=== PATIENT | female | born 1985 | race Two or more races ===

== ENCOUNTER 2017-04-14 12:41 | Outpatient (CLI) | payer MEDICAID ==
[~2017-04-14] VITALS: Ht 170.2 cm; Wt 132.7 kg
[2017-04-14] MEDS ORDERED: PREN-3 PO (12:48)
[2017-04-14 13:01] VITALS: BP 122/58
== END 2017-04-14 13:57 | disposition home or self-care (01) ==
LOC: LDOP 12:41
PROVIDERS: ATTEND Obstetrics & Gynecology
DX: O36.8130 Decreased fetal movements, third trimester, not applicable or unspecified (principal); Z3A.36 36 weeks gestation of pregnancy
CPT/HCPCS: 59025; 99211; G0463

== ENCOUNTER 2017-05-01 18:48 | Inpatient (IN) | payer MEDICAID ==
[~2017-05-01] VITALS: Ht 170.2 cm; Wt 134.0 kg
[~2017-05-01 18:48] MED LIST: PREN-3 PO
[2017-05-01 19:07] VITALS: BP 152/85
[2017-05-01 20:24] LABS: ASPARTATE AMINO TRANSFERASE 15 U/L (15-37); BLOOD UREA NITROGEN 11 mg/dL (7-18)
[2017-05-01] MEDS ORDERED: OXYTOCIN 30U/ 0.9% NaCL 500ML 500 ML IV ONE (21:10)
[2017-05-01] MEDS ORDERED: AMPICILLIN 2 GM in SODIUM CHLORIDE 0.9% 100 ML IVPB STA (21:10)
[2017-05-01] MEDS ORDERED: D5%-LACTATED RINGERS 1,000 ML IV SCH (21:10)
[2017-05-01] MEDS ORDERED: OXYTOCIN 30U/ 0.9% NaCL 500ML 500 ML IV PRN (21:10)
[2017-05-01] MEDS ORDERED: NEWBORN KIT ONE (21:20)
[2017-05-01] MEDS ORDERED: LIDOCAINE 1%, 20ML ONE (21:20)
[2017-05-01] MEDS ORDERED: MISOPROSTOL 200 MCG TABLET ONE (21:20)
[2017-05-01] MEDS ORDERED: OXYTOCIN 30U/ 0.9% NaCL 500ML 500 ML ONE (21:21)
[2017-05-01] MEDS ORDERED: FENTANYL PF 100 MCG/2ML IV PRN (21:30)
[2017-05-01] MEDS: LACTATED RINGERS 1,000 ML IV SCH (23:20)
[2017-05-02] MEDS ORDERED: FENTANYL PF 100 MCG/2ML ONE ×2 (00:08→11:20)
[2017-05-02] MEDS: FENTANYL PF 100 MCG/2ML IVPush PRN ×2 (00:11→11:24)
[2017-05-02] MEDS: AMPICILLIN 1 GM in SODIUM CHLORIDE 0.9% 50 ML IVPB SCH ×4 (03:30→15:51)
[2017-05-02] MEDS: LACTATED RINGERS 1,000 ML IV SCH (07:33)
[2017-05-02] MEDS ORDERED: ACETAMINOPHEN 325 MG TABLET ONE (10:38)
[2017-05-02] MEDS ORDERED: ACETAMINOPHEN 325 MG TABLET PO PRN ×2 (11:00→20:00)
[2017-05-02] MEDS ORDERED: FENTANYL/BUPIV./NS/PF 250 ML EPIDCONT ONE (12:02)
[2017-05-02] MEDS ORDERED: BUPIVACAINE/PF 0.25% ONE (12:03)
[2017-05-02] MEDS ORDERED: FENTANYL/BUPIV./NS/PF 250 ML EPIDCONT SCH (12:04)
[2017-05-02] MEDS ORDERED: LACTATED RINGERS 1,000 ML IV SCH (12:04)
[2017-05-02] MEDS ORDERED: NALOXONE 0.4 MG/ML, 1ML IVPush PRN (12:30)
[2017-05-02] MEDS ORDERED: LACTATED RINGERS 1,000 ML IVBOLUS PRN (12:30)
[2017-05-02] MEDS ORDERED: EPHEDRINE 50 MG/ML, 1ML IVPush PRN (12:30)
[2017-05-02] MEDS ORDERED: LACTATED RINGERS 1,000 ML INTUTE PRN (16:00)
[2017-05-02] MEDS ORDERED: LACTATED RINGERS 1,000 ML INTUTE SCH (16:00)
[2017-05-02] MEDS: OXYTOCIN 30U/ 0.9% NaCL 500ML 500 ML IV SCH ×4 (19:55→22:47)
[2017-05-02] MEDS ORDERED: OXYTOCIN 30U/ 0.9% NaCL 500ML 500 ML ONE (19:57)
[2017-05-02] MEDS ORDERED: MAGNESIUM HYDROXIDE 8%, 30ML UDC PO PRN (20:00)
[2017-05-02] MEDS ORDERED: METHYLERGONOVINE 0.2 MG/ML IM PRN (20:00)
[2017-05-02] MEDS ORDERED: OXYTOCIN 10 UNITS/ML, 1ML IM PRN (20:00)
[2017-05-02] MEDS ORDERED: DIPH,PERTUSS(ACELL),TET VAC/PF NC IM-VACC PRN (20:00)
[2017-05-02] MEDS ORDERED: ONDANSETRON 2MG/ML, 2ML IV PRN (20:00)
[2017-05-02] MEDS ORDERED: OXYcodone/APAP 5/325MG TABLET PO PRN (20:00)
[2017-05-02] MEDS ORDERED: OXYcodone/APAP 5/325MG TABLET ONE (21:09)
[2017-05-02] MEDS ORDERED: IBUPROFEN 600 MG TABLET ONE (21:09)
[2017-05-02] MEDS: OXYcodone/APAP 5/325MG TABLET PO PRN (21:10)
[2017-05-02 22:00] VITALS: BP 115/62
[2017-05-03] MEDS: OXYTOCIN 30U/ 0.9% NaCL 500ML 500 ML IV SCH ×8 (00:13→08:49)
[2017-05-03] MEDS: IBUPROFEN 800 MG TABLET PO PRN ×2 (01:53→12:01)
[2017-05-03] MEDS: OXYcodone/APAP 5/325MG TABLET PO PRN ×3 (01:53→12:02)
[2017-05-03 02:00] VITALS: BP 107/60
[2017-05-03] MEDS ORDERED: PRENATAL VIT/IRON/FA 1 EACH TABLET ONE (07:23)
[2017-05-03] MEDS: DOCUSATE 100 MG CAPSULE PO PRN ×2 (07:24→07:48)
[2017-05-03 07:30] VITALS: BP 133/75
[2017-05-03] MEDS ORDERED: PRENATAL VIT/IRON/FA 1 EACH TABLET PO SCH (09:00)
[2017-05-03 12:00] VITALS: BP 118/83
[2017-05-03 16:00] VITALS: BP 136/77
[2017-05-03] MEDS ORDERED: OXYC-302 PO (17:39)
[2017-05-03] MEDS ORDERED: IBUP800T PO (17:40)
== END 2017-05-03 20:00 | disposition home or self-care (01) | DRG 775 ==
LOC: LDOP 18:48 → LDIP 21:12 → 2NW 05-02 21:27
PROVIDERS: ADMIT Obstetrics & Gynecology; ATTEND Obstetrics & Gynecology
PROC: 10E0XZZ Delivery of Products of Conception, External Approach (ICD-10-PCS; principal; 2017-05-02)
PROC: 10907ZC Drainage of Amniotic Fluid, Therapeutic from Products of Conception, Via Natural or Artificial Opening (ICD-10-PCS; 2017-05-02)
PROC: 3E033VJ Introduction of Other Hormone into Peripheral Vein, Percutaneous Approach (ICD-10-PCS; 2017-05-02)
PROC: 0HQ9XZZ Repair Perineum Skin, External Approach (ICD-10-PCS; 2017-05-02)
PROC: 3E0R3CZ (ICD-10-PCS; 2017-05-02)
PROC: 00HU33Z Insertion of Infusion Device into Spinal Canal, Percutaneous Approach (ICD-10-PCS; 2017-05-02)
DX: O13.4 Gestational [pregnancy-induced] hypertension without significant proteinuria, complicating childbirth (principal); Z68.42 Body mass index [BMI] 45.0-49.9, adult; O99.824 Streptococcus B carrier state complicating childbirth; O99.214 Obesity complicating childbirth; E66.9 Obesity, unspecified; O69.1XX0 Labor and delivery complicated by cord around neck, with compression, not applicable or unspecified; Z3A.38 38 weeks gestation of pregnancy; Z37.0 Single live birth; Z23 Encounter for immunization
CPT/HCPCS: 36415; 80053; 81001; 82248; 84550; 85025; 86850; 86900; 90715; J0290; J3010; J2590; J7120; J7121